=== PATIENT | female | born 1955 | race Caucasian/White ===

== ENCOUNTER → 2021-06-24 | Day surgery (SDC) | payer OTHER ==
[~2021-06-24] MED LIST: AMBIEN10 MG PO; ARTIFICIAL TEAR15 M1 OU; ATIVAN0.5 MG PO; FLONASE ALLERG9.9 ML INH; LEVOTHYROXINE75 MCG PO; LIDOCAINE HCL 2% LOCAL INJ 5 ML SDV VIAL INJ ONE; METHOCARBAMOL750 MG PO; MIDAZOLAM HCL 2 MG/2 ML VIAL ONE; ONDANSETRON HCL INJ 2MG/ML 2ML 2 MG/ML VIAL ONE; PROPOFOL IV EMULSION 10 MG/ML 20 ML VIAL ONE; SIMETHICONE 40 MG/0.6 ML BTL ONE; TRAZODONE HCL100 MG PO; VENTOLIN HFA18 GM INH; WIXELA 250-501 EACH INH; XARELTO10 MG PO
[2021-06-24 10:30] VITALS: BP 110/70
== END | disposition home or self-care (01) ==
LOC: OR 07:59
PROVIDERS: ATTEND Internal Medicine Gastroenterology
DX: Z09 Encounter for follow-up examination after completed treatment for conditions other than malignant neoplasm (principal); K29.70 Gastritis, unspecified, without bleeding; K21.00 Gastro-esophageal reflux disease with esophagitis, without bleeding; K59.00 Constipation, unspecified; K58.9 Irritable bowel syndrome, unspecified; Z87.11 Personal history of peptic ulcer disease; Z98.84 Bariatric surgery status; D64.9 Anemia, unspecified; R63.4 Abnormal weight loss; J44.9 Chronic obstructive pulmonary disease, unspecified; I77.1 Stricture of artery; D68.51 Activated protein C resistance; F32.A Depression, unspecified; Z88.6 Allergy status to analgesic agent; Z88.2 Allergy status to sulfonamides; Z88.8 Allergy status to other drugs, medicaments and biological substances; Z91.048 Other nonmedicinal substance allergy status; Z79.02 Long term (current) use of antithrombotics/antiplatelets; Z79.899 Other long term (current) drug therapy; Z86.16 Personal history of COVID-19; Z87.898 Personal history of other specified conditions
CPT/HCPCS: 43239; 93005; J2001; J2250; J2405; J2704; U0002; 43235

== ENCOUNTER 2023-12-24 11:19 | Emergency (ER) | payer MEDICARE, OTHER ==
[~2023-12-24] VITALS: Ht 162.6 cm; Wt 57.6 kg
[~2023-12-24 11:19] MED LIST changes: +B-12; +DILTIAZEM 24HR120 M1 PO; +FAMOTIDINE20 MG PO; +FLUDROCORTISON0.1 MG PO; +FLUOXETINE HCL20 MG PO; -LIDOCAINE HCL 2% LOCAL INJ 5 ML SDV VIAL INJ ONE; +LIDOCAINE TOP; -MIDAZOLAM HCL 2 MG/2 ML VIAL ONE; +NEXIUM40 MG PO; -ONDANSETRON HCL INJ 2MG/ML 2ML 2 MG/ML VIAL ONE; -PROPOFOL IV EMULSION 10 MG/ML 20 ML VIAL ONE; -SIMETHICONE 40 MG/0.6 ML BTL ONE; +SINGULAIR10 MG PO; +XARELTO20 MG PO; +[UNRECOGNIZED DRUG - OTHER]
[2023-12-24] MEDS ORDERED: ALPRAZOLAM2 MG (12:42)
[2023-12-24] MEDS ORDERED: GEMTESA75 MG (12:42)
[2023-12-24] MEDS: SODIUM CHLORIDE 0.9% 1000ML 1,000 ML IV STA ×2 (12:53→15:46)
[2023-12-24] MEDS: MECLIZINE HCL 12.5 MG TAB PO ONE (15:46)
[2023-12-24] MEDS ORDERED: IOPAMIDOL 370 MG/ML 100 ML INFUS..BTL INJ ONE (16:37)
[2023-12-24 18:51] VITALS: PULSE 86; RESP 16; TEMP 98.3; O2SAT 97
== END 2023-12-24 21:40 | disposition other institution (70) ==
LOC: FSED 11:33
DX: R06.02 Shortness of breath (principal); R05.9 Cough, unspecified; J18.8 Other pneumonia, unspecified organism; D72.829 Elevated white blood cell count, unspecified; R42 Dizziness and giddiness; K21.9 Gastro-esophageal reflux disease without esophagitis; G90.A Postural orthostatic tachycardia syndrome [POTS]; I48.0 Paroxysmal atrial fibrillation; J44.9 Chronic obstructive pulmonary disease, unspecified; J45.909 Unspecified asthma, uncomplicated; D68.51 Activated protein C resistance; Z11.52 Encounter for screening for COVID-19
CPT/HCPCS: 0223U; 70496; 71260; 74177; 80048; 80076; 81003; 82553; 84484; 85025; 87086; 87186; 87400; 93005; 99284; J0456; J0696; J7030; J7050; J8597; Q9967

== ENCOUNTER → 2024-01-06 | Outpatient (REF) | payer MEDICARE, OTHER ==
[~2024-01-06] MED LIST changes: +ALPRAZOLAM2 MG; +GEMTESA75 MG
== END ==
LOC: RAD 11:28
PROVIDERS: ATTEND Internal Medicine
DX: I50.32 Chronic diastolic (congestive) heart failure (principal); R91.8 Other nonspecific abnormal finding of lung field; R60.9 Edema, unspecified
CPT/HCPCS: 71046; 93306